=== PATIENT | male | born 1950 | race Caucasian/White ===

== ENCOUNTER 2021-03-07 11:16 | Emergency (ER) | payer MEDICARE, OTHER ==
[2021-03-07] MEDS ORDERED: CEPHALEXIN500 MG PO (11:46)
== END 2021-03-07 11:53 | disposition home or self-care (01) ==
LOC: FER 11:16
DX: S60.562A Insect bite (nonvenomous) of left hand, initial encounter (principal); L03.114 Cellulitis of left upper limb; W57.XXXA Bitten or stung by nonvenomous insect and other nonvenomous arthropods, initial encounter
CPT/HCPCS: 99283